=== PATIENT | male | born 1980 | race Native Hawaiian/Other Pacific Islander ===

== ENCOUNTER 2020-08-02 11:08 | Outpatient (CLI) | payer BC ==
[2020-08-02 11:23] LABS: PLATELET COUNT 481 K/uL (142-355)
[2020-08-02 11:47] LABS: POTASSIUM 4.7 mmol/L (3.6-5.2)
== END 2020-08-02 20:54 | disposition home or self-care (01) ==
LOC: LAB 11:08
PROVIDERS: ATTEND Nurse Practitioner Family
DX: N17.9 Acute kidney failure, unspecified (principal); R63.1 Polydipsia
CPT/HCPCS: 80053; 82570; 83735; 83935; 84155; 85027

== ENCOUNTER 2020-08-23 07:56 | Outpatient (CLI) | payer BC | END 2020-08-23 22:37 | disposition home or self-care (01) | LOC: US 07:56 | PROVIDERS: ATTEND Nurse Practitioner Family | DX: N17.9 Acute kidney failure, unspecified (principal) ==

== ENCOUNTER 2022-04-07 13:08 | Outpatient (CLI) | payer BC | END 2022-04-07 22:20 | disposition home or self-care (01) | LOC: MRI 13:08 | PROVIDERS: ATTEND Orthopaedic Surgery Adult Reconstructive Orthopaedic Surgery | DX: M25.561 Pain in right knee (principal); S83.241A Other tear of medial meniscus, current injury, right knee, initial encounter; Y92.89 Other specified places as the place of occurrence of the external cause ==